=== PATIENT | male | born 1950 | race Caucasian/White ===

== ENCOUNTER → 2019-04-22 14:20 | Outpatient (BNVA) | payer MEDICARE, SELFPAY | PROVIDERS: PCP Nurse Practitioner Family; Visit Provider Nurse Practitioner Family | DX: M54.5 Low back pain (principal) | CPT/HCPCS: 81003 ==

== ENCOUNTER → 2020-02-02 11:25 | Outpatient (BNVA) | payer MEDICARE, SELFPAY | PROVIDERS: PCP Nurse Practitioner Family; Visit Provider Family Medicine | DX: M54.42 Lumbago with sciatica, left side (principal) | CPT/HCPCS: 72100 ==

== ENCOUNTER → 2021-01-03 14:15 | Outpatient (BNVA) | payer MEDICARE, SELFPAY | PROVIDERS: PCP Nurse Practitioner Family; Visit Provider Nurse Practitioner Family | DX: R07.9 Chest pain, unspecified (principal); Z13.6 Encounter for screening for cardiovascular disorders | CPT/HCPCS: 71046 ==

== ENCOUNTER → 2021-01-10 08:35 | Outpatient (BNVA) | payer MEDICARE, SELFPAY | PROVIDERS: PCP Nurse Practitioner Family; Visit Provider Nurse Practitioner Family | DX: R07.9 Chest pain, unspecified (principal); Z13.6 Encounter for screening for cardiovascular disorders; M54.42 Lumbago with sciatica, left side | CPT/HCPCS: 80053; 80061; 82607; 83735; 84443; 85025 ==

== ENCOUNTER 2021-02-17 10:23 | Outpatient (CLI) | payer MEDICARE, SELFPAY ==
--- NOTE | 2021-02-17 11:45 | MR_ITS ---
WS: [id number] MRI LUMBAR SPINE NONCONTRAST HISTORY: M54.42 - Lumbago with sciatica, left side, LEFT groin pain and foot numbness for 3 months. COMPARISON: None available. TECHNIQUE: Sagittal and axial multisequence imaging is submitted. Straightening of normal cervical lordosis. Increase in thoracic kyphosis. Mild increase in the lumbar lordosis. Slight retrolisthesis of L2 by 23 mm. No acute fracture. Disc s paces are narrowed and moderately desiccated, most significant at L5-S1. Conus terminates normally at L1. L1-L2: Mild bilateral facet joint arthritis. L2-L3: There is a large LEFT lateral subarticular recess disc protrusion extending inferiorly below t he disc level. There is encroachment and mass effect upon the LEFT lateral thecal sac at the L3 nerve root. Disc disc extends over a length of 1.6 cm and transversely by 1.2 cm. Mild bilateral foraminal narrowing. L3-L4: Diffuse osteophytic ridging, moderate ligamentum flavum and facet arthritis. Asymmetric disc b ulging to the RIGHT. There is mild disc contact and displacement on the traversing L4 nerve roots. Ve ry mild bilateral subarticular recess stenosis. L4-L5: Mild annular disc bulging. There is a small central disc protrusion. Moderate ligamentum flavu m and facet arthritis. Small facet joint osteophytes encroach into the central thecal sac. Very mild subarticular recess narrowing. No high-grade stenosis. L5-S1: Central disc protrusion with vertebral body osteophytes and facet joint arthritis. There is en croachment upon the S1 nerve roots bilaterally. No significant foraminal stenosis. No paravertebral soft tissue abnormalities of the thin atherosclerosis of aorta. MR/MR lumbar spine wo con* [id number] IMPRESSION: 1. Large extruded LEFT subarticular disc protrusion at L2-3 contacting and dis placing the traversing L3 nerve root on the LEFT. Disc measures 1.6 cm in lengt h by 1.2 cm. There is significant contact and displacement of the L3 nerve root and deformity of the thecal sac. 2. Central disc protrusion with osteophytes at L5-S1 with encroachment upon th e S1 nerve roots bilaterally. 3. Very slight disc contact on the traversing L4 nerve roots at L3-4 with mild subarticular stenosis.
== END 2021-02-17 10:24 | disposition home or self-care (01) ==
LOC: RADSHAW 10:29
PROVIDERS: PCP Nurse Practitioner Family; Visit Provider Nurse Practitioner Family
DX: M54.42 Lumbago with sciatica, left side (principal); M51.26 Other intervertebral disc displacement, lumbar region; M51.27 Other intervertebral disc displacement, lumbosacral region; M25.78 Osteophyte, vertebrae
CPT/HCPCS: 72148

== ENCOUNTER 2021-04-10 13:18 | Outpatient (CLI) | payer MEDICARE, SELFPAY ==
--- NOTE | 2021-04-10 13:42 | USCV_ITS ---
Nathan Monteiro Age: 71 Gender: M : 1950 Exam Date: 04/10/2021 14:09 Ordering Phys: Loyd Moreno MD Technologist: SHAYAN Exam Location: [facility] Indication: CARDIAC MURMUR BP: 148 / 84 HR: 73 Rhythm: Sinus Technical Quality: Adequate MEASUREMENTS (Male / Female) Normal Values 2D ECHO LV Diastolic Diameter PLAX 3.1 cm 4.2 - 5.9 / 3.9 - 5.3 cm LV Systolic Diameter PLAX 2.0 cm IVS Diastolic Thickness 1.1 cm 0.6 - 1.0 / 0.6 - 0.9 cm IVS Systolic Thickness 1.4 cm LVPW Diastolic Thickness 1.4 cm 0.6 - 1.0 / 0.6 - 0.9 cm LVPW Systolic Thickness 1.1 cm LVOT Diameter 2.0 cm LV Ejection Fraction 2D Teich 67.0 % LV Ejection Fraction MOD 2C 67.9 % LV Ejection Fraction 2C AL 68.5 % LA Diameter 3.1 cm LA Width 3.2 cm LA Height 5.1 cm RA Width 4.6 cm RA Height 4.0 cm Aorta at Sinotubular Diameter 2.0 cm M-MODE Aortic Annulus Diameter 2.3 cm LA Ao Ratio MM 1.3 DOPPLER AV Peak Velocity 299.0 cm/s LVOT Peak Velocity 119.0 cm/s AV Area Cont Eq vti 1.5 cm squared AV Area Cont Eq pk 1.3 cm squared MV Area PHT 5.0 cm squared Mitral E to A Ratio 0.8 MV E' Velocity 40.5 cm/s Mitral E to MV E' Ratio 6.3 Mitral E to LV E' Lateral Ratio 6.3 Mitral E to LV E' Septal Ratio 6.3 TR Peak Velocity 151.0 cm/s TR Peak Gradient 9.1 mmHg Right Atrial Pressure 3.0 mmHg Pulmonary Artery Systolic Pressu 12.1 mmHg RV Acceleration Time 0.1 s RV Ejection Time 0.3 s RV AcT/ET 0.5 FINDINGS Left Ventricle Normal left ventricular size and systolic function, EF 67 %. Mild left ventricular hypertrophy. Mild hypokinesia of the apical septal segment.Grade I/IV diastolic dysfunction (abnormal relaxation filling pattern), normal to mildly elevated filling pressures. Right Ventricle The right ventricle is normal in size and function. Right Atrium The right atrium is normal in size. Left Atrium The left atrium is normal in size. Mitral Valve Thickened mitral valve. Aortic Valve Mild aortic valve stenosis, mean gradient 19.2 mmHg, SANDRA 1.5 cm squared. Peak velocity of 2.99 m/s with a peak gradient of 36 mmHg.[id number] aortic valve regurgitation. Tricuspid Valve Trace tricuspid valve regurgitation. Pulmonic Valve No gross abnormalities noted Pericardium Normal pericardium without effusion. Aorta Normal ascending aorta dimension. CONCLUSIONS Normal left ventricular size and systolic function, EF 67 %. Mild left ventricular hypertrophy. Mild hypokinesia of the apical septal segment.Grade I/IV diastolic dysfunction (abnormal relaxation filling pattern), normal to mildly elevated filling pressures. Mild aortic valve stenosis, mean gradient 19.2 mmHg, SANDRA 1.5 cm squared. Peak velocity of 2.99 m/s with a peak gradient of 36 mmHg. [id number] aortic valve regurgitation. Thickened mitral valve. There is no pericardial effusion. There are no intracardiac masses. No previous study is available for comparison. Dr Williams Cisneros MD FACC (Electronically Signed) Final Date: 10 April 2021 16:58 S
== END 2021-04-10 13:19 | disposition home or self-care (01) ==
LOC: RAD 13:28
PROVIDERS: PCP Nurse Practitioner Family; Visit Provider Neurological Surgery
DX: R01.1 Cardiac murmur, unspecified (principal); I35.0 Nonrheumatic aortic (valve) stenosis; I05.9 Rheumatic mitral valve disease, unspecified
CPT/HCPCS: 93306

== ENCOUNTER → 2021-04-13 10:42 | Outpatient (BNVA) | payer MEDICARE, SELFPAY | PROVIDERS: PCP Nurse Practitioner Family; Visit Provider Internal Medicine Cardiovascular Disease | DX: I35.0 Nonrheumatic aortic (valve) stenosis (principal); Z87.891 Personal history of nicotine dependence; I10 Essential (primary) hypertension; R07.89 Other chest pain | CPT/HCPCS: 99204 ==

== ENCOUNTER 2021-04-28 07:35 | Outpatient (CLI) | payer MEDICARE, SELFPAY ==
[2021-04-28 07:57] VITALS: BMI 27.3
--- NOTE | 2021-04-28 07:59 | NMCV_ITS ---
NM deja perf SPECT r/s* [id number] Nathan Monteiro Age: 71 Gender: M : 1950 Exam Date: 04/28/2021 08:57 Ordering Phys: Williams Cisneros MD ([email or web address]) Technologist: CRYSTAL Dudley Exam Location: [facility] Indications: SHORTNESS OF BREATH STRESS TEST Please see separate stress test report in [facility] for full findings IMAGE PROTOCOL Rest/Stress 1 Lexiscan Day Radiopharmaceutical Dose (mCi) Administration Site Administered by Rest: Tc-99m 10.6 IV CRYSTAL Serrano Sestamibi Stress:Tc-99m 32.8 IV CRYSTAL Serrano Sestamibi Rest: 28-Apr-2021 60 Discovery 630 Stress: 28-Apr-2021 30 Discovery 630 0.4mg Lexiscan. Images obtained in supine and prone position. SPECT RESULTS Technical Quality: Excellent Raw Data Analysis: Normal Image Corrections: No attenuation or motion correction applied Summed Stress Score: 0 Summed Rest Score: 0 Summed Difference Score: 0 PERFUSION FINDINGS Fairly uniform myocardial tracer uptake. No significant perfusion abnormalities FUNCTIONAL RESULTS (calculated via Gated SPECT) Stress Image LV EF (%): 80 Stress EDV (mL):64 TID: 0.79 Stress ESV (mL):13 FUNCTIONAL FINDINGS: Segmental wall motion analysis revealing no gross wall motion abnormalities IMPRESSIONS 1. Unremarkable myocardial perfusion imaging 2. Normal LV ejection fraction of 80%. 3. Segmental wall motion analysis revealing no gross wall motion abnormalities 4. Normal LV volume Low probability for coronary ischemia, based on the above findings Dr Williams Cisneros MD FAC (Electronically Signed) Final Date: 28 April 2021 18:04 S
--- NOTE | 2021-04-28 07:59 | ECG_ITS ---
[facility] Test Date: 2021-04-28 Pat Name: Nathan Monteiro Department: Room: Gender: Male Regulatory Auditor: Swati Herring : 1950 Requested By: Williams Cisneros Order Number: [id number] Jose Armando MD: Williams Cisneros M.D. Interpretive Statements NAME OF STUDY: LEXISCAN SESTAMIBI STRESS TEST INDICATION: Abnormal echo, PROCEDURE: At the baseline, the EKG revealed normal sinus rhythm with some nonspecific changes in the inferior leads. The baseline blood pressure was 158/74 mm Hg with a heart rate of 82 beats/min. Lexiscan was infused over a period of 20 seconds. A total of 0.4 milligrams of Lexiscan was infused. The stress phase was continued for a total of 5 minutes. Heart rate at the end of the stress phase was 107 with a blood pressure 163/78. The EKG at the peak infusion revealed no significant changes. Sestamibi was injected 20 seconds after the Lexiscan infusion. Blood pressure at the end of the recovery phase was 163/72 with a heart rate of 99 per minute. CONCLUSION: 1. No significant EKG changes with the LexiScan infusion 2. No LexiScan induced chest pain or cardiac arrhythmia 3. Normal blood pressure and heart rate response 4. Sestamibi/sestamibi perfusion scan pending; see separate report. Electronically Signed On 04-29-2021 13:45:42 CDT by Williams Cisneros M.D. [id number]
[2021-04-28 09:42] VITALS: BP 163/72; PULSE 85
[2021-04-28] MEDS: regadenoson 0.4 Mg/5 ml Syringe IVP (09:42)
== END 2021-04-28 07:36 | disposition home or self-care (01) ==
LOC: RAD 07:35 → CDL 07:48
PROVIDERS: PCP Nurse Practitioner Family; Visit Provider Internal Medicine Cardiovascular Disease
DX: R94.31 Abnormal electrocardiogram [ECG] [EKG] (principal)
CPT/HCPCS: 78452; 93017; A9500; J2785

== ENCOUNTER → 2021-09-14 09:58 | Outpatient (BNVA) | payer MEDICARE, SELFPAY | PROVIDERS: PCP Nurse Practitioner Family | DX: I10 Essential (primary) hypertension (principal); Z12.5 Encounter for screening for malignant neoplasm of prostate | CPT/HCPCS: 80053; 80061; 84443; 85025; G0103 ==

== ENCOUNTER → 2022-02-22 08:25 | Outpatient (BNVA) | payer MEDICARE, SELFPAY | PROVIDERS: PCP Nurse Practitioner Family; Visit Provider Nurse Practitioner Family | DX: E78.5 Hyperlipidemia, unspecified (principal) | CPT/HCPCS: 80053; 80061; 82607; 83735; 85025 ==

== ENCOUNTER → 2022-10-04 10:21 | Outpatient (BNVA) | payer MEDICARE, SELFPAY | PROVIDERS: PCP Nurse Practitioner Family; Visit Provider Nurse Practitioner Family | DX: I10 Essential (primary) hypertension (principal); Z12.5 Encounter for screening for malignant neoplasm of prostate; Z00.00 Encounter for general adult medical examination without abnormal findings; E78.5 Hyperlipidemia, unspecified; I35.0 Nonrheumatic aortic (valve) stenosis; R42 Dizziness and giddiness | CPT/HCPCS: 80053; 80061; 82607; 84443; 85025; G0103 ==

== ENCOUNTER 2023-09-17 11:49 | Outpatient (CLI) | payer MEDICARE, SELFPAY | END 2023-09-17 11:50 | disposition home or self-care (01) | LOC: RAD 11:50 | PROVIDERS: PCP Nurse Practitioner Family; Visit Provider Nurse Practitioner Family | DX: I35.0 Nonrheumatic aortic (valve) stenosis (principal) | CPT/HCPCS: 80053; 80061; 84443; 85025; 93306 ==

== ENCOUNTER 2023-09-19 08:47 | Outpatient (RCR) | payer MEDICARE, SELFPAY | END 2023-10-12 23:59 | disposition home or self-care (01) | LOC: SPT 08:47 | PROVIDERS: PCP Nurse Practitioner Family; Visit Provider Nurse Practitioner Family | DX: R42 Dizziness and giddiness (principal) | CPT/HCPCS: 95992; 97161 ==

== ENCOUNTER → 2023-10-08 11:49 | Outpatient (BNVA) | payer MEDICARE, SELFPAY | PROVIDERS: PCP Nurse Practitioner Family; Visit Provider Nurse Practitioner Family | DX: Z12.5 Encounter for screening for malignant neoplasm of prostate (principal) | CPT/HCPCS: G0103 ==

== ENCOUNTER → 2023-10-31 15:07 | Outpatient (BNVA) | payer MEDICARE, SELFPAY | PROVIDERS: PCP Nurse Practitioner Family; Visit Provider Internal Medicine Cardiovascular Disease | DX: R07.89 Other chest pain (principal); I35.0 Nonrheumatic aortic (valve) stenosis; I10 Essential (primary) hypertension; E78.2 Mixed hyperlipidemia | CPT/HCPCS: 99214 ==

== ENCOUNTER 2024-02-22 19:52 | Emergency (ER) | payer MEDICARE, SELFPAY ==
--- NOTE | 2024-02-22 20:29 | ECG_ITS ---
[facility] Test Date: 2024-02-22 Pat Name: Nathan Monteiro ( RALPH) Department: Room: Gender: Male Director Hair: : 1950 Requested By: Franklyn Navas Order Number: [id number] Reading MD: Williams Cisneros M.D. Measurements Intervals [place] Rate: 76 P: 35 MI: 148 QRS: 36 QRSD: 80 T: 30 QT: 377 QTc: 426 Interpretive Statements SINUS RHYTHM Compared to ECG 05/01/2018 22:35:11 No significant changes Electronically Signed On 02-25-2024 23:56:04 LITHOGRAPHED PLATE INSPECTOR by Williams Cisneros M.D. [email or web address]
[2024-02-22 20:34] VITALS: BP 149/75; PULSE 79; RESP 15; TEMP 36.8; O2SAT 96; BMI 27.3
--- NOTE | 2024-02-22 20:46 | XRR_ITS ---
PROCEDURE INFORMATION: Exam: XR Chest Exam date and time: 02/22/2024 9:55 PM Age: 73 years old Clinical indication: Other: Epigastric pain TECHNIQUE: Imaging protocol: Radiologic exam of the chest. Views: 1 view. COMPARISON: CR XR chest 2V* [id number] 01/03/2021 2:20 PM FINDINGS: Lungs: Unremarkable. No consolidation. Pleural spaces: Unremarkable. No pleural effusion. No pneumothorax. Heart/Mediastinum: Unremarkable. No cardiomegaly. Bones/joints: Unremarkable. XR/XR chest 1V portable [id number] IMPRESSION: No acute findings.
[2024-02-22 21:17] LABS: Basophils % 0.3 %; Eosinophils % 0.1 %; Hematocrit 45.2 % (37-53); Lymphocytes # 1.1 10^3/uL (0.8-4.8); Lymphocytes % 9.3 %; Mean Corpuscular Hemoglobin 29.8 pg (27-33); Mean Corpuscular Volume 90.4 fl (82-101); Mean Platelet Volume 8.9 fL (7.4-10.4); Monocytes # 0.7 10^3/uL (0.2-0.9); Monocytes % 6.2 %; Neutrophils # 9.78 10^3/uL (1.8-7.7); Neutrophils % 83.8 %; Nucleated Red Blood Cells % 0 %; Platelet Count 208 10^3/cmm (157-399); Red Cell Distribution Width 13.2 % (12.1-15.1); White Blood Count 11.69 10^3/uL (3.29-11.43)
[2024-02-22 21:37] LABS: Troponin(5th) Baseline 11 ng/L (0-15)
[2024-02-22 21:49] LABS: Alanine Aminotransferase 94 U/L (0-41); Albumin Level 4.7 g/dL (3.5-5.2); Alkaline Phosphatase 71 U/L (40-130); Anion Gap 15.6 (5-19); Aspartate Amino Transferase 152 U/L (0-40); Blood Urea Nitrogen 18 mg/dL (8-23); Carbon Dioxide 25 mmol/L (22-29); Chloride 103 mmol/L (98-107); Creatinine Clr Calc Pharmacy 48.9863; Globulin 2.4 g/dL (1.3-4.6); Glucose 120 mg/dL (65-115); Lipase 133 U/L (13-60); NT Pro B Type Natriuretic Pept 118 pg/mL (0-125); Osmolality Calculated 291 mOsm/kg (285-295); Potassium 4.6 mmol/L (3.5-5.1); Sodium 139 mmol/L (136-145); Total Bilirubin 1.5 mg/dL (0.15-1.2); Total Protein 7.1 g/dL (6.6-8.7)
[2024-02-22 22:00] VITALS: BP 172/92; PULSE 74; RESP 16; O2SAT 95
--- NOTE | 2024-02-22 22:03 | CTR_ITS ---
PROCEDURE INFORMATION: Exam: CT Abdomen And Pelvis With Contrast Exam date and time: 02/22/2024 10:12 PM Age: 73 years old Clinical indication: Abdominal pain; Prior surgery; Surgery date: 6+ months; Surgery type: Appy; Patient HX: C/O epigastric/ruq pain; Additional info: Ruq epigastric pain TECHNIQUE: Imaging protocol: Computed tomography of the abdomen and pelvis with contrast. Radiation optimization: All CT scans at this facility use at least one of these dose optimization techniques: automated exposure control; mA and/or kV adjustment per patient size (includes targeted exams where dose is matched to clinical indication); or iterative reconstruction. Contrast material: OMNI 350; Contrast volume: 80 ml; Contrast route: INTRAVENOUS (IV); COMPARISON: CR XR lumbar spine 2-3V* [id number] 02/02/2020 11:28 AM RADIATION DOSE METRICS: Total DLP (mGy-cm): 636.16 FINDINGS: Liver: Normal. No mass. Gallbladder and biliary ducts: The gallbladder is contracted with suspected tiny gallstones. Pancreas: Normal. No ductal dilation. Spleen: Normal. No splenomegaly. Adrenal glands: Normal. No mass. Kidneys and ureters: Bilateral cortical renal cysts present. Stomach and bowel: Scattered colon diverticula. No inflammatory change identified involving the GI tract. No signs of bowel obstruction. Appendix: No evidence of appendicitis. Intraperitoneal space: Unremarkable. No free air. No significant fluid collection. Vasculature: Scattered calcific plaque involves the abdominal aorta and iliac arteries. Lymph nodes: Unremarkable. No enlarged lymph nodes. Urinary bladder: Unremarkable as visualized. Reproductive: Unremarkable as visualized. Bones/joints: Mild degenerative changes involve the spine. Soft tissues: Unremarkable. CT/CT abdomen pelvis w con* [id number] IMPRESSION: 1. Cholelithiasis without evidence of acute cholecystitis. 2. Bilateral benign cortical renal cysts. 3. Atherosclerosis. 4. Diverticulosis. COMMENTS: Consistent with the [employer]'s Incidental Findings Committee white paper (J Am Vivek Radiol 2018): Any incidental renal lesion less than 1 cm or classified as too small to characterize, or any incidental cystic renal lesion characterized as simple-appearing, is likely benign. No follow-up imaging is recommended for these lesions per consensus recommendations based on imaging criteria.
[2024-02-22] MEDS: iohexol 350 mg/mL 500 mL Btl (per mL) IV (22:14)
[2024-02-22] MEDS: lidocaine 2% viscous 15 ML, aluminum-mag hydrox-simethicon 30 ML, sucralfate oral liq 1 GM PO (22:54)
--- NOTE | 2024-02-22 22:58 | ECG_ITS ---
[facility] Test Date: 2024-02-22 Pat Name: Nathan Monteiro ( RALPH) Department: Room: Gender: Male Survey Supervisor: : 1950 Requested By: Franklyn Navas Order Number: [id number] Reading MD: Measurements Intervals [place] Rate: 72 P: 25 GA: 159 QRS: 36 QRSD: 80 T: 35 QT: 391 QTc: 431 Interpretive Statements SINUS RHYTHM [email or web address]
--- NOTE | 2024-02-22 23:27 | W.ED.ABDPA2 ---
HPI - Abdominal Pain General: Chief Complaint: Abdominal Pain Stated Complaint: bloating Time Seen by Provider: 02/22/24 21:55 History of Present Illness: 73-year-old male gentleman who says that he ate a large breakfast this morning. Since that time, he feels like the breakfast has sat in his stomach and not moved. He has a full feeling in his belly, that radiates under his ribs into his chest. He has a bandlike pain as well in his epigastrium. He has some right upper quadrant greater than left upper quadrant pain. No vomiting. He was nauseated prior. Pain now is intermittent. Related Data Home Medications Medication Instructions Recorded Confirmed ibuprofen 800 mg tablet 800 mg PO BID 04/13/21 10/08/23 Previous Rx's Medication Instructions Recorded metoprolol succinate 25 mg 25 mg PO DAILY #90 tabs 08/26/23 tablet,extended release 24 hr rosuvastatin 10 mg tablet 10 mg PO DAILY #90 tabs 08/26/23 ketorolac 10 mg tablet 10 mg PO TID PRN pain #10 tabs 02/23/24 ondansetron 4 mg disintegrating 4 mg PO Q6H PRN nausea and 02/23/24 tablet vomiting #14 tabs Allergies Allergy/AdvReac Type Severity Reaction Status Date / Time No Known Allergies Allergy Verified 10/31/23 15:11 [facility] PFSH: Medical History Arthritis Hyperlipidemia Surgical History Hx of appendectomy Family History Brother CAD (coronary artery disease), Onset Age: 60 valve replaced Brother CAD (coronary artery disease), Onset Age: 60 stents in heart Denies family history of Diabetes Clotting disorder Dementia Chronic kidney disease (CKD) Suicide Anesthesia complication Bleeding disorder Lung disease Cancer Stroke Social History Smoking and tobacco/nicotine status: never used tobacco/nicotine Quit status (tobacco/nicotine): has quit using Year quit tobacco: 1994 Former quit date comment: smoked 20 yrs Second hand smoke exposure: No Alcohol intake: never Substance/Drug Use: never Lives independently: Yes Household members: spouse Housing: House Marital status: Current occupational status: retired Current gender identity: Male Special shahid needs: No Physical Exam Const: COMMON NORMALS: no acute distress GENERAL APPEARANCE: cooperative; not ill appearing and not frail appearing HENMT: COMMON NORMALS: normocephalic, atraumatic and Normal external nose present HEAD & SCALP: normocephalic and atraumatic FACE & SINUS: normal facial exam and face symmetric NOSE: Normal external nose present Eye: COMMON NORMALS: Equal, round and reactive pupils present and EOMs intact bilaterally PUPIL: Yes Equal, round and reactive pupils present Neck/C-Spine: GENERAL: Yes trachea midline Chest: CHEST: Yes Symmetrical chest wall rise Resp: COMMON NORMALS: normal respiratory effort, No retractions, No use of accessory muscles and clear to auscultation bilaterally AUSCULTATION: clear to auscultation bilaterally Cardio: COMMON NORMALS: regular rate and regular rhythm RATE: regular rate RHYTHM: regular rhythm GI: COMMON NORMALS: Normal to inspection, nondistended, normoactive bowel sounds present PALPATION: Yes Tenderness to palpation present (GI) (Right upper quadrant and epigastric) Extremity: COMMON NORMALS: no pedal edema Neuro: DONNIE COMA SCALE: document GCS findings Donnie coma scale eye opening: Spontaneous Donnie coma scale verbal response: Orientated [place] coma scale motor response: Obey commands [place] coma scale total score: 15 SENSORY EXAM: Yes extremities (intact) Psych: COMMON NORMALS: speech normal SPEECH: Yes normal speech Skin: COMMON NORMALS: no rashes or lesions noted GENERAL SKIN EXAM: no rashes or lesions noted Course Vital Signs: Vital signs: Vital Signs Temperature 98.2 F 02/22/24 20:34 Pulse Rate 67 02/23/24 01:28 Respiratory Rate 16 02/23/24 00:50 Blood Pressure 149/72 02/23/24 01:28 Pulse Oximetry 95 02/23/24 01:28 Oxygen Delivery Me thod Room Air 02/23/24 00:47 MDM - Abdominal Pain Medical Decision Making 73-year-old gentleman with epigastric and right upper quadrant pain. GI cocktail did not seem to help his pain much. Morphine and Toradol resolve this pain. He is afebrile. Vitals are stable otherwise. His white blood cell count is 11.7. His creatinine is 1.4. Chest x-ray is negative. EKG shows no acute ST wave changes. Troponins remain normal. Abdomen pelvis CT as well as gallbladder ultrasound both show cholelithiasis without any evidence of acute cholecystitis. Common bile duct caliber is normal. His bilirubin is 1.5 with minimal elevation in liver enzymes, and minimal lipase elevation. No changes of acute pancreatitis on CT. With resolution of his symptoms, he will be allowed discharge. We put a case management referral in the surgery clinic for further evaluation and follow-up. He knows to return for any return of his symptoms whatsoever, or any signs of worsening hyperbilirubinemia. Lab Data 02/22/24 21:08 02/22/24 21:08 Labs/Radiology: Radiology Impressions Chest X-Ray 02/22/24 20:46 IMPRESSION: No acute findings. Abdomen/Pelvis CT 02/22/24 22:03 IMPRESSION: 1. Cholelithiasis without evidence of acute cholecystitis. 2. Bilateral benign cortical renal cysts. 3. Atherosclerosis. 4. Diverticulosis. COMMENTS: Consistent with the [place] [employer]'s Incidental Findings Committee white paper (J Am Vivek Radiol 2018): Any incidental renal lesion less than 1 cm or classified as too small to characterize, or any incidental cystic renal lesion characterized as simple-appearing, is likely benign. No follow-up imaging is recommended for these lesions per consensus recommendations based on imaging criteria. Gallbladder Ultrasound 02/23/24 22:45 IMPRESSION: Cholelithiasis without evidence of acute cholecystitis. Laboratory Results WBC 11.69 10^3/uL (3.29-11.43) H 02/22/24 21:08 RBC 5.00 10^6/uL (3.85-5.65) 02/22/24 21:08 Hgb 14.90 g/dL (11.27-16.99) 02/22/24 21:08 Hct 45.2 % (37-53) 02/22/24 21:08 MCV 90.4 fl (82-101) 02/22/24 21:08 MCH 29.8 pg (27-33) 02/22/24 21:08 MCHC 33.0 g/dL (30-55) 02/22/24 21:08 RDW 13.2 % (12.1-15.1) 02/22/24 21:08 Plt Count 208 10^3/cmm (157-399) 02/22/24 21:08 MPV 8.9 fL (7.4-10.4) 02/22/24 21:08 Neut % (Auto) 83.8 % 02/22/24 21:08 Lymph % (Auto) 9.3 % 02/22/24 21:08 Harris % (Auto) 6.2 % 02/22/24 21:08 Eos % (Auto) 0.1 % 02/22/24 21:08 Baso % (Auto) 0.3 % 02/22/24 21:08 Neut # (Auto) 9.78 10^3/uL (1.8-7.7) H 02/22/24 21:08 Lymph # (Auto) 1.1 10^3/uL (0.8-4.8) 02/22/24 21:08 Harris # (Auto) 0.7 10^3/uL (0.2-0.9) 02/22/24 21:08 Eos # (Auto) 0.0 10^3/uL (0.0-0.8) 02/22/24 21:08 Baso # (Auto) 0.0 10^3/uL (0.0-0.1) 02/22/24 21:08 Nucleated RBC % (auto) 0 % 02/22/24 21:08 Nucleated RBCs # 0.0 /100WBC 02/22/24 21:08 Sodium 139 mmol/L (136-145) 02/22/24 21:08 Potassium 4.6 mmol/L (3.5-5.1) 02/22/24 21:08 Chloride 103 mmol/L (98-107) 02/22/24 21:08 Carbon Dioxide 25 mmol/L (22-29) 02/22/24 21:08 Anion Gap 15.6 (5-19) 02/22/24 21:08 BUN 18 mg/dL (8-23) 02/22/24 21:08 Creatinine 1.4 mg/dL (0.7-1.2) H 02/22/24 21:08 GFR Calculation Not Reportable 02/22/24 21:08 Glucose 120 mg/dL (65-115) H 02/22/24 21:08 Calculated Osmolality 291 mOsm/kg (285-295) 02/22/24 21:08 Calcium 10.0 mg/dL (8.5-10.5) 02/22/24 21:08 Total Bilirubin 1.5 mg/dL (0.15-1.2) H 02/22/24 21:08 AST 152 U/L (0-40) H 02/22/24 21:08 ALT 94 U/L (0-41) H 02/22/24 21:08 Alkaline Phosphatase 71 U/L (40-130) 02/22/24 21:08 Troponin T Baseline 11 ng/L (0-15) 02/22/24 21:08 Troponin T 120 Minute 11.72 ng/L (0-15) 02/22/24 23:29 Delta Troponin T 0.72 ABS# (0-10) 02/22/24 23:29 NT-Pro-B Natriuret Pep 118 pg/mL (0-125) 02/22/24 21:08 Total Protein 7.1 g/dL (6.6-8.7) 02/22/24 21:08 Albumin 4.7 g/dL (3.5-5.2) 02/22/24 21:08 Globulin 2.4 g/dL (1.3-4.6) 02/22/24 21:08 Lipase 133 U/L (13-60) H 02/22/24 21:08 All radiology interpretation(s) finalized by discharge Discharge Plan Discharge Patient Disposition: Home Clinical Impression: Biliary colic Condition: Stable Prescriptions: New ketorolac 10 mg tablet 10 mg PO TID PRN (Reason: pain) Qty: 10 0RF ondansetron 4 mg tablet,disintegrating 4 mg PO Q6H PRN (Reason: nausea and vomiting) Qty: 14 0RF No Action ibuprofen 800 mg tablet 800 mg PO BID metoprolol succinate 25 mg tablet extended release 24 hr 25 mg PO DAILY Qty: 90 4RF rosuvastatin 10 mg tablet 10 mg PO DAILY Qty: 90 4RF Discharge Orders: Discharge ED (Routine); Ordered 02/23/24 Ordered By: Nir Wharton Referrals: Kelly Rosales FNP [Primary Care Provider] - 1-3 days Patient Instructions: Biliary Colic (ED), Abdominal Pain (ED), Opioid Safety, Pain Management Activity Restrictions/Additional Instructions: Medication as directed. Follow a liquid diet for 24 hours. You may increase your diet if pain is resolved, and you are fully improved. Return for return of significant discomfort, vomiting liquids or medications, fever greater than 100, yellowing of the eyes, any other concerning symptoms. You should hear from case management this coming week for a referral to surgery. Follow-up with your doctor this week. Coding Level of Care Code ED Director Of Accreditation for Amira Fowler
[2024-02-22 23:33] VITALS: BP 168/73; PULSE 76; O2SAT 94
[2024-02-22 23:54] LABS: Troponin 5 2HR 11.72 ng/L (0-15); Troponin 5 2HR Delta 0.72 ABS# (0-10)
[2024-02-23 00:47] VITALS: BP 148/84; PULSE 69; RESP 16; O2SAT 93
[2024-02-23 00:50] VITALS: RESP 16; O2SAT 93
[2024-02-23] MEDS: morphine 4 mg/mL SDV 1 mL IVP (00:50)
[2024-02-23] MEDS: ondansetron 2 mg/ML SDV 2 mL 4 MG IVP (00:50)
[2024-02-23] MEDS: ketorolac 30 mg/mL INJ IVP (00:51)
[2024-02-23 01:28] VITALS: BP 149/72; PULSE 67; O2SAT 95
--- NOTE | 2024-02-23 22:45 | USR_ITS ---
PROCEDURE INFORMATION: Exam: US Abdomen, Limited; Right Upper Quadrant Exam date and time: 02/23/2024 12:31 AM Age: 73 years old Clinical indication: Abdominal pain; Localized; Right upper quadrant (ruq); Additional info: Ruq pain TECHNIQUE: Imaging protocol: Real time ultrasound of the abdomen with image documentation. Limited exam focused on the right upper quadrant. COMPARISON: CT abdomen pelvis w con* [id number] 02/22/2024 10:12 PM FINDINGS: Liver: Normal. No masses. Gallbladder: The gallbladder is contracted with multiple gallstones. There is mild gallbladder wall thickening measuring up to 5 mm. Biliary ducts: The common bile duct measures 5 mm. Pancreas: Visualized pancreas is unremarkable. Right kidney: Right kidney measures 10.2 cm in length without hydronephrosis or solid renal mass. There is a simple cyst involving the right mid kidney measuring 1.3 cm in diameter. Aorta: The visualized portions of the upper abdominal aorta demonstrates mild plaque. Intraperitoneal space: No free fluid. US/US gall bladder [id number] IMPRESSION: Cholelithiasis without evidence of acute cholecystitis.
--- NOTE | 2024-02-24 09:30 | DCPLANNER ---
messaged gen surg for er f/u
== END 2024-02-23 01:29 | disposition home or self-care (01) ==
PROVIDERS: Nurse Practitioner; Emergency Provider Emergency Medicine; PCP Nurse Practitioner Family
DX: K80.50 Calculus of bile duct without cholangitis or cholecystitis without obstruction (principal); Z87.891 Personal history of nicotine dependence; E78.5 Hyperlipidemia, unspecified
CPT/HCPCS: 36415; 71045; 74177; 76705; 80053; 83690; 83880; 84484; 85025; 93005; 96374; 96375; 99285; J1885; J2270; J2405

== ENCOUNTER → 2024-10-13 11:01 | Outpatient (BNVA) | payer MEDICARE, SELFPAY | PROVIDERS: PCP Nurse Practitioner Family; Visit Provider Nurse Practitioner Family | DX: I10 Essential (primary) hypertension (principal); E78.2 Mixed hyperlipidemia; Z12.5 Encounter for screening for malignant neoplasm of prostate; R07.89 Other chest pain; E16.2 Hypoglycemia, unspecified | CPT/HCPCS: 80053; 80061; 83036; 84443; 85025; G0103 ==

== ENCOUNTER → 2024-10-29 13:56 | Outpatient (BNVA) | payer MEDICARE, SELFPAY | PROVIDERS: PCP Nurse Practitioner Family; Visit Provider Internal Medicine Cardiovascular Disease | DX: I35.0 Nonrheumatic aortic (valve) stenosis (principal); I10 Essential (primary) hypertension; E78.5 Hyperlipidemia, unspecified; Z87.891 Personal history of nicotine dependence; R06.09 Other forms of dyspnea | CPT/HCPCS: 99214 ==

== ENCOUNTER 2024-11-24 08:41 | Outpatient (CLI) | payer MEDICARE, SELFPAY ==
--- NOTE | 2024-11-24 09:15 | USCV_ITS ---
Nathan Monteiro( REFUGIO) Age: 74 Gender: M : 1950 Exam Date: 11/24/2024 09:11 Ordering Phys: Williams Cisneros MD ([email or web address]) Technologist: Exam Location: [facility] [place] Indication: cp sob BP: / HR: 62 Rhythm: Sinus Technical Quality: Adequate MEASUREMENTS (Male / Female) Normal Values 2D ECHO LV Diastolic Diameter PLAX 3.3 cm 4.2 - 5.9 / 3.9 - 5.3 cm IVS Diastolic Thickness 1.1 cm 0.6 - 1.0 / 0.6 - 0.9 cm IVS Systolic Thickness 1.5 cm LVPW Diastolic Thickness 1.3 cm 0.6 - 1.0 / 0.6 - 0.9 cm LVPW Systolic Thickness 1.4 cm LVOT Diameter 2.1 cm LV Ejection Fraction 2D Teich 61.4 % LV Ejection Fraction MOD 4C 57.7 % LV Ejection Fraction MOD 2C 66.2 % LV Ejection Fraction 2C AL 66.9 % LA Diameter 3.6 cm RA Systolic Volume 4C AL 73.5 ml RA Systolic Volume 4C MOD 69.6 ml Aorta at Sinotubular Diameter 2.6 cm IVC Diameter 1.5 cm M-MODE LA Ao Ratio MM 1.2 AV Cusp Separation MM 1.2 cm DOPPLER AV Peak Velocity 413.3 cm/s LVOT Peak Velocity 136.0 cm/s AV Area Cont Eq vti 1.3 cm squared AV Area Cont Eq pk 1.1 cm squared MV Peak Velocity 118.0 cm/s MV Area PHT 2.6 cm squared Mitral E to A Ratio 1.1 TV Peak Velocity 211.5 cm/s TR Peak Velocity 256.0 cm/s TR Peak Gradient 26.2 mmHg TV Peak E Velocity 98.0 cm/s PV Peak Velocity 110.0 cm/s FINDINGS Left Ventricle Normal left ventricular size and systolic function, EF 66%.mild left ventricular hypertrophy. No regional wall motion abnormalities. Right Ventricle Normal right ventricular size and systolic function. Right Atrium Normal right atrial size. Left Atrium Normal left atrial size. IA Septum No shunting across the atrial septum based on the color-flow Doppler examination Mitral Valve Mild mitral valve regurgitation. Aortic Valve Moderate aortic valve stenosis, mean gradient 31.7 mmHg, SANDRA 1.3 cm squared. Mild aortic valve regurgitation. Peak velocity of 4.19 m/s with a peak gradient of 70 and a mean gradient of 33 mmHg Tricuspid Valve Trace to mild tricuspid valve regurgitation. Estimated pulmonary artery peak systolic pressure 29 mmHg Pulmonic Valve Pulmonic valve not well visualized. Pericardium No pericardial effusion. Aorta Normal diameter of the aortic root and ascending thoracic aorta. IVC Normal inferior vena cava. CONCLUSIONS Normal left ventricular size and systolic function, EF 66%.mild left ventricular hypertrophy. No regional wall motion abnormalities. Moderate aortic valve stenosis, mean gradient 31.7 mmHg, SANDRA 1.3 cm squared. Mild aortic valve regurgitation. Peak velocity of 4.19 m/s with a peak gradient of 70 and a mean gradient of 33 mmHg Trace to mild tricuspid valve regurgitation. Estimated pulmonary artery peak systolic pressure 29 mmHg Mild mitral valve regurgitation. There is no pericardial effusion. There are no intracardiac masses. Compared to the study from 09/17/2023, there is a slight worsening of the aortic valve stenosis Dr Williams Cisneros MD [facility] (Electronically Signed) Final Date: 29 November 2024 19:35 S
== END 2024-11-24 08:42 | disposition home or self-care (01) ==
LOC: RAD 08:42
PROVIDERS: PCP Nurse Practitioner Family; Visit Provider Internal Medicine Cardiovascular Disease
DX: R06.09 Other forms of dyspnea (principal); I34.0 Nonrheumatic mitral (valve) insufficiency; I35.1 Nonrheumatic aortic (valve) insufficiency; I35.0 Nonrheumatic aortic (valve) stenosis; I51.89 Other ill-defined heart diseases
CPT/HCPCS: 93306